=== PATIENT | male | born 1950 | race Caucasian/White ===

== ENCOUNTER 2023-12-17 11:59 | Inpatient (IN) | payer OTHER, MEDICAID ==
[~2023-12-17] VITALS: Ht 165.1 cm; Wt 58.1 kg
[~2023-12-17 11:59] MED LIST: ACET325T53 PO; AMLO10TA88 PO; ASA81 PO; BISA-95 PR; DOCU250C14 PO; DRON5CAP26 PO; DUTA0.5C PO; FERR236T3 PO; FLEPED RC; METO-290 PO; MIRT-91 PO; MOM PO; MULT-1117 PO; NEU100 PO; ONDA-8 PO; PENT400T17 PO; POTA-195 PO; PRO40 PO; SENN8.6T19 PO; SUCR1TAB2 PO; TAMS-11 PO
[2023-12-17 12:06] VITALS: BP_SYST 179; PULSE 59; RESP 18; TEMP 97.6; O2SAT 100
[2023-12-17 13:06] LABS: BASOPHILS # (AUTO) 0.1 K/uL (0.0-0.2); BASOPHILS % (AUTO) 0.6 % (0.0-2.0); EOSINOPHILS # (AUTO) 0.2 K/uL (0.0-0.4); EOSINOPHILS % (AUTO) 2.5 % (0.0-4.0); HEMATOCRIT 32.6 % (36-54); HEMOGLOBIN 10.9 g/dL (14.0-18.0); LYMPHOCYTES # (AUTO) 4.1 K/uL (1.0-5.5); LYMPHOCYTES % (AUTO) 48.2 % (20.5-51.5); MEAN CORPUSCULAR HEMOGLOBIN 33 pg (27-31); MEAN CORPUSCULAR HGB CONC 34 % (32-36); MEAN CORPUSCULAR VOLUME 97 fL (79.0-98.0); MONOCYTES # (AUTO) 0.6 K/uL (0.0-1.0); MONOCYTES % (AUTO) 6.5 % (1.7-9.3); NEUTROPHILS # (AUTO) 3.6 K/uL (1.8-7.7); NEUTROPHILS % (AUTO) 42.2 % (40.0-70.0); RED BLOOD CELL COUNT(AUTO) 3.36 MIL/uL (4.2-6.2); RED CELL DISTRIBUTION WIDTH 13.9 % (9.0-15.0); WHITE BLOOD COUNT (AUTO) 8.6 K/uL (4.8-10.8)
[2023-12-17 13:23] LABS: PLATELET COUNT (AUTO) 304 K/uL (130-430)
[2023-12-17] MEDS ORDERED: PIPERACILLIN/TAZOBACTAM 3.375 GM/VIAL (ZOSYN) IV ONE (13:56)
[2023-12-17] MEDS: PIPERACILLIN/TAZO 3.375 GM in NS 50 ML IV ONE (14:09)
[2023-12-17 14:18] LABS: ANION GAP 3 (5-15); CALCIUM 10.1 mg/dL (8.4-11.0); CARBON DIOXIDE 29 mmol/L (23-29); CHLORIDE 97 mmol/L (98-107); CREATININE 0.92 mg/dL (0.55-1.30); GLUCOSE 90 mg/dL (74-106); POTASSIUM 3.7 mmol/L (3.5-5.1); SODIUM SERUM 129 mmol/L (136-145); UREA NITROGEN, BLOOD 31 mg/dL (8-21)
[2023-12-17 16:45] LABS: BILIRUBIN,URINE NEGATIVE (NEGATIVE); BLOOD, URINE 2+ (NEGATIVE); CLARITY/URINE CLEAR (CLEAR); COLOR,URINE YELLOW (YELLOW); GLUCOSE,URINE NEGATIVE (NEGATIVE); KETONES,URINE NEGATIVE (NEGATIVE); LEUKOCYTE ESTERASE ,URINE NEGATIVE (NEGATIVE); NITRITE, URINE NEGATIVE (NEGATIVE); PH,URINE 6.5 (5.0-8.0); PROTEIN URINE 2+ (NEGATIVE); UROBILINOGEN,URINE 0.2 (0.2-1.0)
[2023-12-17] MEDS ORDERED: ACET325T39 PO (17:24)
[2023-12-17] MEDS ORDERED: LANS30CA53 PO (17:24)
[2023-12-17] MEDS ORDERED: LACT10SO6 PO (17:24)
[2023-12-17] MEDS ORDERED: ATOR40TA68 PO (17:24)
[2023-12-17] MEDS ORDERED: FURO-150 PO (17:24)
[2023-12-17 17:48] LABS: BACTERIA,URINE FEW /HPF (None Seen); RBC,URINE 20-50 /HPF (0-3); WBC,URINE 0-3 /HPF (0-3)
[2023-12-17 17:49] LABS: MUCUS,URINE None Seen /LPF (None Seen)
[2023-12-17 17:58] VITALS: BP_SYST 168; PULSE 51; O2SAT 96
[2023-12-17] MEDS ORDERED: ACETAMINOPHEN 325 MG TABLET PO PRN (18:00)
[2023-12-17] MEDS ORDERED: LevALBUTEROL HCL 1.25 MG/0.5 ML *CONC.* VIAL.NEB (XOPENEX CONC.) INH PRN (18:00)
[2023-12-17] MEDS ORDERED: BISACODYL 10 MG PR SCH (18:00)
[2023-12-17] MEDS: NACL 0.9% 1,000 ML IV SCH (18:01)
[2023-12-17] MEDS ORDERED: AZITHROMYCIN 500 MG/VIAL (ZITHROMAX) IV ONE (20:48)
[2023-12-17] MEDS: AZITHROMYCIN 500 MG in NS 250 ML IV SCH (20:58)
[2023-12-17] MEDS: DUTASTERIDE 0.5 MG CAPSULE (AVODART) PO SCH (21:00)
[2023-12-17] MEDS: GABAPENTIN 100 MG CAPSULE PO SCH (21:18)
[2023-12-17] MEDS: ENOXAPARIN SODIUM 30 MG/0.3 ML SYRINGE SUBCUT SCH (21:19)
[2023-12-17] MEDS: METOCLOPRAMIDE HCL 10 MG TABLET PO SCH (21:19)
[2023-12-17 22:10] VITALS: BP_SYST 158; PULSE 59; RESP 18; TEMP 97.7; O2SAT 100
[2023-12-17 22:37] VITALS: BP_SYST 158; PULSE 59; RESP 20; TEMP 97.7; O2SAT 100
[2023-12-17] MEDS: PENTOXIFYLLINE 400 MG TABLET.SA (TRENtal) PO SCH (23:10)
[2023-12-17] MEDS: MIRTAZAPINE 15 MG TABLET PO SCH (23:12)
[2023-12-17] MEDS: FERROUS GLUCONATE 324 MG TABLET PO SCH (23:12)
[2023-12-17] MEDS: DOCUSATE SODIUM 250 MG CAPSULE PO SCH (23:12)
[2023-12-17] MEDS: SENNOSIDES 8.6 MG TABLET PO SCH (23:12)
[2023-12-17] MEDS: SUCRALFATE 1 GM TABLET PO SCH (23:12)
[2023-12-17] MEDS: cefTRIAXone 1 GM IVPB PREMIX 50 ML IV ONE (23:14)
[2023-12-17] MEDS: cefTRIAXone 1 GM in D5W 50 ML IV SCH (23:14)
[2023-12-17] MEDS: LevALBUTEROL HCL 1.25 MG/0.5 ML *CONC.* VIAL.NEB (XOPENEX CONC.) INH SCH (23:37)
[2023-12-17 23:39] VITALS: O2SAT 100
[2023-12-18] VITALS (8 sets, daily range): BP systolic 108–138; PULSE 61–73; RESP 12–19; TEMP 97.9–98.6; O2SAT 96–100
[2023-12-18] MEDS ORDERED: NA P133E24 RC (08:48)
[2023-12-18] MEDS ORDERED: NA PHOS,M-B/NA PHOS,DI-BA 66.6 ML (FLEET ENEMA PEDS) RC SCH (09:00)
[2023-12-18] MEDS: MILK OF MAGNESIA 30 ML UDC PO SCH (10:11)
[2023-12-18] MEDS: PANTOPRAZOLE SODIUM 40 MG TAB PO SCH (10:11)
[2023-12-18] MEDS: POTASSIUM CHLORIDE 10 MEQ TABLET.ER PO SCH (10:11)
[2023-12-18] MEDS: FUROSEMIDE 20 MG TABLET PO SCH (10:12)
[2023-12-18] MEDS: TAMSULOSIN HCL 0.4 MG CAP PO SCH (10:12)
[2023-12-18] MEDS: ATORVASTATIN 20 MG TABLET PO SCH (10:13)
[2023-12-18] MEDS: ASPIRIN 81 MG TAB.CHEW PO SCH (10:13)
[2023-12-18] MEDS: amLODIPine BESYLATE 10 MG TABLET PO SCH (10:13)
[2023-12-18] MEDS: droNABinol 2.5 MG CAPSULE PO SCH (10:14)
[2023-12-18] MEDS: MULTIVITAMINS TAB 1 TABLET PO SCH (10:14)
[2023-12-18] MEDS: SODIUM PHOSPHATE,MONO-DIBASIC 133 ML ENEMA RC SCH (10:15)
[2023-12-18 10:39] LABS: BASOPHILS % (AUTO) 0.6 % (0.0-2.0); EOSINOPHILS # (AUTO) 0.1 K/uL (0.0-0.4); EOSINOPHILS % (AUTO) 2.1 % (0.0-4.0); HEMOGLOBIN 10.2 g/dL (14.0-18.0); LYMPHOCYTES # (AUTO) 2.4 K/uL (1.0-5.5); MEAN CORPUSCULAR HEMOGLOBIN 33 pg (27-31); MEAN CORPUSCULAR HGB CONC 34 % (32-36); MEAN CORPUSCULAR VOLUME 97 fL (79.0-98.0); MONOCYTES # (AUTO) 0.5 K/uL (0.0-1.0); NEUTROPHILS # (AUTO) 3.1 K/uL (1.8-7.7); NEUTROPHILS % (AUTO) 50.3 % (40.0-70.0); PLATELET COUNT (AUTO) 298 K/uL (130-430); WHITE BLOOD COUNT (AUTO) 6.1 K/uL (4.8-10.8)
[2023-12-18] MEDS ORDERED: BISACODYL 10 MG/SUPPOSITORY RC PRN (11:45)
[2023-12-18 12:35] LABS: ALANINE AMINOTRANSFERASE 25 U/L (12-78); ALBUMIN 2.6 g/dL (3.4-4.8); ANION GAP 8 (5-15); ASPARTATE AMINOTRANSFERASE 26 U/L (10-37); CALCIUM 9.5 mg/dL (8.4-11.0); CARBON DIOXIDE 26 mmol/L (23-29); CHLORIDE 107 mmol/L (98-107); GLUCOSE 110 mg/dL (74-106); POTASSIUM 3.8 mmol/L (3.5-5.1); SODIUM SERUM 141 mmol/L (136-145); TOTAL BILIRUBIN 0.3 mg/dL (0.0-1.0); TOTAL PROTEIN, SERUM 7.8 g/dL (6.4-8.3); UREA NITROGEN, BLOOD 29 mg/dL (8-21)
[2023-12-19] VITALS (8 sets, daily range): BP systolic 104–138; PULSE 51–78; RESP 16–20; TEMP 97.5–99.5; O2SAT 96–100
[2023-12-19 06:06] LABS: BASOPHILS % (AUTO) 0.6 % (0.0-2.0); EOSINOPHILS # (AUTO) 0.2 K/uL (0.0-0.4); EOSINOPHILS % (AUTO) 3.1 % (0.0-4.0); HEMATOCRIT 27.5 % (36-54); HEMOGLOBIN 9.2 g/dL (14.0-18.0); LYMPHOCYTES # (AUTO) 2.4 K/uL (1.0-5.5); LYMPHOCYTES % (AUTO) 43.7 % (20.5-51.5); MEAN CORPUSCULAR HEMOGLOBIN 33 pg (27-31); MEAN CORPUSCULAR HGB CONC 34 % (32-36); MEAN CORPUSCULAR VOLUME 97 fL (79.0-98.0); MONOCYTES # (AUTO) 0.5 K/uL (0.0-1.0); MONOCYTES % (AUTO) 9.7 % (1.7-9.3); NEUTROPHILS # (AUTO) 2.4 K/uL (1.8-7.7); NEUTROPHILS % (AUTO) 42.9 % (40.0-70.0); PLATELET COUNT (AUTO) 273 K/uL (130-430); RED BLOOD CELL COUNT(AUTO) 2.83 MIL/uL (4.2-6.2); RED CELL DISTRIBUTION WIDTH 14.2 % (9.0-15.0); WHITE BLOOD COUNT (AUTO) 5.6 K/uL (4.8-10.8)
[2023-12-19 06:43] LABS: ALANINE AMINOTRANSFERASE 21 U/L (12-78); ALBUMIN 2.2 g/dL (3.4-4.8); ANION GAP 10 (5-15); ASPARTATE AMINOTRANSFERASE 20 U/L (10-37); CALCIUM 9.1 mg/dL (8.4-11.0); CARBON DIOXIDE 25 mmol/L (23-29); CHLORIDE 111 mmol/L (98-107); CREATININE 0.93 mg/dL (0.55-1.30); GLUCOSE 77 mg/dL (74-106); POTASSIUM 3.8 mmol/L (3.5-5.1); SODIUM SERUM 146 mmol/L (136-145); TOTAL BILIRUBIN 0.2 mg/dL (0.0-1.0); UREA NITROGEN, BLOOD 22 mg/dL (8-21)
[2023-12-19 06:50] LABS: TOTAL IRON BIND. CAPACITY 211 ug/dL (250-450)
[2023-12-19] MEDS: CEFEPIME 2 GM in D5W 100 ML IV SCH (18:06)
[2023-12-20] VITALS (7 sets, daily range): BP systolic 135–157; PULSE 47–98; RESP 14–20; TEMP 98.1–99.1; O2SAT 98–100
[2023-12-20] MEDS: VANCOMYCIN HCL 500 MG in NS 100 ML IV SCH (20:58)
[2023-12-21] VITALS (8 sets, daily range): BP systolic 140–161; PULSE 46–57; RESP 15–20; TEMP 97.2–98.8; O2SAT 95–100
[2023-12-22] VITALS (9 sets, daily range): BP systolic 135–170; PULSE 49–69; RESP 16–18; TEMP 97.7–99; O2SAT 94–100
[2023-12-22] MEDS ORDERED: IOHEXOL 350 mgI/mL, 150 ML INFUS..BTL IV ONE (13:51)
[2023-12-22 16:17] LABS: ALANINE AMINOTRANSFERASE 22 U/L (12-78); ALBUMIN 2.2 g/dL (3.4-4.8); ANION GAP 8 (5-15); ASPARTATE AMINOTRANSFERASE 29 U/L (10-37); CARBON DIOXIDE 22 mmol/L (23-29); CHLORIDE 112 mmol/L (98-107); CREATININE 0.79 mg/dL (0.55-1.30); GLUCOSE 101 mg/dL (74-106); POTASSIUM 3.3 mmol/L (3.5-5.1); SODIUM SERUM 142 mmol/L (136-145); TOTAL BILIRUBIN 0.3 mg/dL (0.0-1.0); TOTAL PROTEIN, SERUM 6.5 g/dL (6.4-8.3); UREA NITROGEN, BLOOD 13 mg/dL (8-21)
[2023-12-22 16:31] LABS: BASOPHILS % (AUTO) 0.6 % (0.0-2.0); EOSINOPHILS # (AUTO) 0.3 K/uL (0.0-0.4); EOSINOPHILS % (AUTO) 4.4 % (0.0-4.0); HEMATOCRIT 29.1 % (36-54); HEMOGLOBIN 9.6 g/dL (14.0-18.0); LYMPHOCYTES # (AUTO) 1.8 K/uL (1.0-5.5); LYMPHOCYTES % (AUTO) 28.8 % (20.5-51.5); MEAN CORPUSCULAR HEMOGLOBIN 34 pg (27-31); MEAN CORPUSCULAR HGB CONC 33 % (32-36); MEAN CORPUSCULAR VOLUME 102 fL (79.0-98.0); MONOCYTES # (AUTO) 0.5 K/uL (0.0-1.0); MONOCYTES % (AUTO) 7.8 % (1.7-9.3); NEUTROPHILS # (AUTO) 3.7 K/uL (1.8-7.7); NEUTROPHILS % (AUTO) 58.4 % (40.0-70.0); PLATELET COUNT (AUTO) 272 K/uL (130-430); RED BLOOD CELL COUNT(AUTO) 2.86 MIL/uL (4.2-6.2); RED CELL DISTRIBUTION WIDTH 13.8 % (9.0-15.0); WHITE BLOOD COUNT (AUTO) 6.4 K/uL (4.8-10.8)
[2023-12-23 08:00] VITALS: BP_SYST 165; PULSE 64; RESP 24; TEMP 99.1; O2SAT 99
[2023-12-23 11:12] VITALS: BP_SYST 131; PULSE 69; RESP 16; TEMP 97.5; O2SAT 100
[2023-12-23 15:03] VITALS: BP_SYST 116; PULSE 57; RESP 16; TEMP 97.4; O2SAT 99
[2023-12-23 20:00] VITALS: BP_SYST 143; PULSE 69; RESP 16; TEMP 97.4
[2023-12-23 21:55] VITALS: O2SAT 97
[2023-12-24] VITALS (7 sets, daily range): BP systolic 151–195; PULSE 78–82; RESP 16–18; TEMP 98.2–99.6; O2SAT 94–98
[2023-12-24] MEDS ORDERED: IOHEXOL 350 mgI/mL, 150 ML INFUS..BTL IV ONE (08:16)
[2023-12-24] MEDS: CARVEDILOL 25 MG TABLET (COREG) PO ONE (21:32)
[2023-12-24] MEDS: cloNIDine HCL 0.1 MG TABLET PO PRN (21:33)
[2023-12-25] VITALS (7 sets, daily range): BP systolic 155–186; PULSE 42–83; RESP 14–21; TEMP 97.5–99.4; O2SAT 94–97
[2023-12-25 07:02] LABS: BASOPHILS % (AUTO) 0.8 % (0.0-2.0); EOSINOPHILS # (AUTO) 0.3 K/uL (0.0-0.4); EOSINOPHILS % (AUTO) 5.6 % (0.0-4.0); HEMATOCRIT 23.9 % (36-54); HEMOGLOBIN 8.5 g/dL (14.0-18.0); LYMPHOCYTES # (AUTO) 2.4 K/uL (1.0-5.5); MEAN CORPUSCULAR HEMOGLOBIN 33 pg (27-31); MEAN CORPUSCULAR HGB CONC 35 % (32-36); MEAN CORPUSCULAR VOLUME 93 fL (79.0-98.0); MONOCYTES # (AUTO) 0.5 K/uL (0.0-1.0); MONOCYTES % (AUTO) 8.1 % (1.7-9.3); NEUTROPHILS # (AUTO) 2.8 K/uL (1.8-7.7); NEUTROPHILS % (AUTO) 46.5 % (40.0-70.0); PLATELET COUNT (AUTO) 250 K/uL (130-430); RED BLOOD CELL COUNT(AUTO) 2.57 MIL/uL (4.2-6.2); RED CELL DISTRIBUTION WIDTH 13.6 % (9.0-15.0); WHITE BLOOD COUNT (AUTO) 6.1 K/uL (4.8-10.8)
[2023-12-25 07:13] LABS: PROTHROMBIN TIME 11.1 SECS (9.5-12.5)
[2023-12-25 07:21] LABS: ALANINE AMINOTRANSFERASE 17 U/L (12-78); ALBUMIN 1.7 g/dL (3.4-4.8); ANION GAP 7 (5-15); ASPARTATE AMINOTRANSFERASE 26 U/L (10-37); CALCIUM 8.5 mg/dL (8.4-11.0); CARBON DIOXIDE 26 mmol/L (23-29); CHLORIDE 113 mmol/L (98-107); GLUCOSE 100 mg/dL (74-106); SODIUM SERUM 146 mmol/L (136-145); TOTAL BILIRUBIN 0.3 mg/dL (0.0-1.0); TOTAL PROTEIN, SERUM 6.3 g/dL (6.4-8.3); UREA NITROGEN, BLOOD 13 mg/dL (8-21)
[2023-12-25 07:38] LABS: POTASSIUM 2.3 mmol/L (3.5-5.1)
[2023-12-25] MEDS: POTASSIUM CHLORIDE 20 MEQ/PKT PACKET PO ONE (08:54)
[2023-12-25] MEDS: CARVEDILOL 25 MG TABLET (COREG) PO SCH (09:00)
[2023-12-25] MEDS: POTASSIUM CHLORIDE 40 MEQ, LIDOCAINE JECT 2% PF 100 MG 50 MG in NS 250 ML IV ONE (09:08)
[2023-12-25] MEDS ORDERED: NS 1000 ML IV.SOLN IV ONE (12:41)
[2023-12-25] MEDS ORDERED: LIDOCAINE MPF 2% 20 MG/1 ML, 5 ML VIAL INH ONE (12:41)
[2023-12-25] MEDS ORDERED: BUPIVACAINE /PF 0.25% 30 ML VIAL INJ ONE (12:41)
[2023-12-25] MEDS ORDERED: NS IRRIG SOLN 1000 ML IR ONE (12:41)
[2023-12-25] MEDS ORDERED: MIDAZOLAM HCL 2 MG/2 ML VIAL (VERSED) ONE (12:41)
[2023-12-25] MEDS ORDERED: fentaNYL CITRATE/PF 100 MCG/2 ML AMP ONE (12:41)
[2023-12-25] MEDS ORDERED: WATER FOR IRRIGATION,STERILE 1,000 ML IRRIG.SOLN IR ONE (12:41)
[2023-12-25 12:53] LABS: ANION GAP 5 (5-15); CALCIUM 8.8 mg/dL (8.4-11.0); CARBON DIOXIDE 27 mmol/L (23-29); CHLORIDE 114 mmol/L (98-107); CREATININE 0.96 mg/dL (0.55-1.30); GLUCOSE 82 mg/dL (74-106); POTASSIUM 3.6 mmol/L (3.5-5.1); SODIUM SERUM 146 mmol/L (136-145); UREA NITROGEN, BLOOD 13 mg/dL (8-21)
[2023-12-25] MEDS ORDERED: MORPHINE 4 MG INJ. 4 MG/ML VIAL IVP PRN (13:00)
[2023-12-25] MEDS ORDERED: ONDANSETRON HCL 4 MG/2 ML VIAL IVP PRN (13:00)
[2023-12-25] MEDS: LR 1,000 ML IV SCH (15:26)
[2023-12-25] MEDS: DAPTOmycin 350 MG in NS 50 ML IV SCH (16:02)
[2023-12-26] VITALS (10 sets, daily range): BP systolic 155–173; PULSE 51–72; RESP 16–22; TEMP 97.6–99; O2SAT 93–98
[2023-12-26 07:06] LABS: BASOPHILS # (AUTO) 0.1 K/uL (0.0-0.2); BASOPHILS % (AUTO) 0.8 % (0.0-2.0); EOSINOPHILS # (AUTO) 0.5 K/uL (0.0-0.4); EOSINOPHILS % (AUTO) 7.2 % (0.0-4.0); HEMATOCRIT 24.5 % (36-54); HEMOGLOBIN 8.4 g/dL (14.0-18.0); LYMPHOCYTES # (AUTO) 2.9 K/uL (1.0-5.5); MEAN CORPUSCULAR HEMOGLOBIN 33 pg (27-31); MEAN CORPUSCULAR HGB CONC 34 % (32-36); MEAN CORPUSCULAR VOLUME 95 fL (79.0-98.0); MONOCYTES # (AUTO) 0.5 K/uL (0.0-1.0); MONOCYTES % (AUTO) 7.6 % (1.7-9.3); NEUTROPHILS # (AUTO) 3.1 K/uL (1.8-7.7); NEUTROPHILS % (AUTO) 43.4 % (40.0-70.0); PLATELET COUNT (AUTO) 261 K/uL (130-430); RED BLOOD CELL COUNT(AUTO) 2.58 MIL/uL (4.2-6.2); RED CELL DISTRIBUTION WIDTH 13.5 % (9.0-15.0); WHITE BLOOD COUNT (AUTO) 7.2 K/uL (4.8-10.8)
[2023-12-26 07:08] LABS: ANION GAP 11 (5-15); CALCIUM 8.8 mg/dL (8.4-11.0); CARBON DIOXIDE 23 mmol/L (23-29); CHLORIDE 112 mmol/L (98-107); CREATININE 0.87 mg/dL (0.55-1.30); GLUCOSE 102 mg/dL (74-106); SODIUM SERUM 146 mmol/L (136-145); UREA NITROGEN, BLOOD 16 mg/dL (8-21)
[2023-12-26 07:12] LABS: POTASSIUM 2.8 mmol/L (3.5-5.1)
[2023-12-26] MEDS ORDERED: POTASSIUM CHLORIDE 20 MEQ TABLET.ER PO ONE (07:45)
[2023-12-26] MEDS: KCL 20 mEq in 100 mL (PREMIX) 100 ML IV ONE ×2 (08:08→10:00)
[2023-12-26] MEDS: POTASSIUM CHLORIDE 20 MEQ/PKT PACKET GT ONE (08:08)
[2023-12-26 16:16] LABS: ANION GAP 7 (5-15); CALCIUM 9.1 mg/dL (8.4-11.0); CARBON DIOXIDE 23 mmol/L (23-29); CHLORIDE 115 mmol/L (98-107); CREATININE 0.89 mg/dL (0.55-1.30); GLUCOSE 93 mg/dL (74-106); POTASSIUM 3.6 mmol/L (3.5-5.1); SODIUM SERUM 145 mmol/L (136-145); UREA NITROGEN, BLOOD 14 mg/dL (8-21)
[2023-12-26] MEDS ORDERED: MAXPM1 IV (18:39)
[2023-12-26] MEDS ORDERED: CUBICIN IVPB (18:40)
[2023-12-27 07:34] VITALS: O2SAT 95
[2023-12-27 08:00] VITALS: O2SAT 95
[2023-12-27 08:14] VITALS: BP_SYST 167; PULSE 50; RESP 16; TEMP 99; O2SAT 95
[2023-12-27] MEDS: POTASSIUM CHLORIDE 20 MEQ/PKT PACKET GT SCH (09:30)
[2023-12-27 11:43] VITALS: BP_SYST 169; PULSE 51; RESP 16; TEMP 98.4; O2SAT 95
[2023-12-27] MEDS ORDERED: hydrALAZINE HCL 10 MG TABLET PO PRN (12:30)
[2023-12-27] MEDS: LOSARTAN POTASSIUM 25 MG TABLET PO ONE (12:50)
[2023-12-27 14:14] VITALS: BP_SYST 147; PULSE 48; RESP 16; TEMP 98.4; O2SAT 95
[2023-12-27] MEDS ORDERED: LOSARTAN POTASSIUM 25 MG TABLET PO SCH (21:00)
== END 2023-12-27 12:25 | DRG 264 ==
LOC: SED 11:59 → SMU 17:05
PROVIDERS: ADMIT Family Medicine; ATTEND Family Medicine
PROC: 05HY33Z Insertion of Infusion Device into Upper Vein, Percutaneous Approach (ICD-10-PCS; 2023-12-23)
PROC: 0JBR0ZZ Excision of Left Foot Subcutaneous Tissue and Fascia, Open Approach (ICD-10-PCS; principal; 2023-12-25 12:46)
DX: E11.52 Type 2 diabetes mellitus with diabetic peripheral angiopathy with gangrene (principal); J18.9 Pneumonia, unspecified organism; E87.1 Hypo-osmolality and hyponatremia; M86.8X7 Other osteomyelitis, ankle and foot; J96.10 Chronic respiratory failure, unspecified whether with hypoxia or hypercapnia; Z20.822 Contact with and (suspected) exposure to COVID-19; I10 Essential (primary) hypertension; D64.9 Anemia, unspecified; L89.620 Pressure ulcer of left heel, unstageable; F03.A0 Unspecified dementia, mild, without behavioral disturbance, psychotic disturbance, mood disturbance, and anxiety; E11.69 Type 2 diabetes mellitus with other specified complication; Z79.899 Other long term (current) drug therapy; Z88.8 Allergy status to other drugs, medicaments and biological substances
CPT/HCPCS: 36415; 71045; 73706; 80048; 80053; 80202; 81000; 81001; 81015; 83540; 83550; 83605; 83735; 83880; 84484; 85025; 85610; 85651; 85730; 86886; 86900; 86901; 87040; 87070; 87081; 87186; 88304; 93005; 93923; 94070; 94640; 94760; 96365; 97110-GP; 97112-GP; 97530-GP; 99285; J0456; J0692; J0696; J0878; J1650; J2543; J3010; J3370; J3465; J3480; J3490; J7030; J7050; J7060; J7612; J8597; Q0167; Q9967